=== PATIENT | male | born 1970 | race Two or more races ===

== ENCOUNTER 2023-05-22 19:16 | Inpatient (IN) | payer MEDICAID ==
[~2023-05-22] VITALS: Ht 172.7 cm; Wt 90.7 kg
[2023-05-22] MEDS ORDERED: IV NORMAL SALINE 1000 ML BAG IV ONE (19:30)
[2023-05-22] MEDS ORDERED: HALOPERIDOL LACTATE 5 MG/1 ML VIAL ONE (19:42)
[2023-05-22] MEDS ORDERED: diphenhydrAMINE 50 MG/1 ML VIAL ONE (19:42)
[2023-05-22] MEDS ORDERED: LORAZEPAM 2 MG/1 ML VIAL ONE (19:44)
[2023-05-22] MEDS ORDERED: diphenhydrAMINE 50 MG/1 ML VIAL IM ONE (19:45)
[2023-05-22] MEDS ORDERED: HALOPERIDOL LACTATE 5 MG/1 ML VIAL IM ONE (19:45)
[2023-05-22] MEDS ORDERED: LORAZEPAM 2 MG/1 ML VIAL IM ONE (19:45)
[2023-05-22 20:16] LABS: BASOPHILS % (AUTO) 0.6 % (0.0-2.0); EOSINOPHILS # (AUTO) 0.2 K/uL (0.0-0.7); EOSINOPHILS % (AUTO) 2.2 % (0.0-7.0); HEMATOCRIT 39.7 % (36.7-47.1); LYMPHOCYTES # (AUTO) 1.1 K/uL (0.8-4.8); LYMPHOCYTES % (AUTO) 14.8 % (20.5-51.5); MEAN CORPUSCULAR HGB CONC 35 g/dL (32.5-36.3); MEAN CORPUSCULAR VOLUME 90.9 fL (73.0-96.2); MONOCYTES # (AUTO) 0.5 K/uL (0.1-1.30); MONOCYTES % (AUTO) 7.2 % (0.0-11.0); NEUTROPHILS # (AUTO) 5.5 K/uL (1.8-8.9); NEUTROPHILS % (AUTO) 75.2 % (38.5-71.5); PLATELET COUNT (AUTO) 331 K/uL (152-348); RED BLOOD CELL COUNT(AUTO) 4.37 MIL/uL (4.06-5.63); RED CELL DISTRIBUTION WIDTH 12.9 % (12.1-16.2); WHITE BLOOD COUNT (AUTO) 7.3 K/uL (3.6-10.2)
[2023-05-22 20:18] LABS: DIFFERENTIAL COMMENT 1
[2023-05-22 20:27] LABS: CALCIUM 8.5 mg/dL (8.5-10.1); CARBON DIOXIDE 26 mmol/L (21-32); CHLORIDE 104 mmol/L (98-107); CREATININE 2.3 mg/dL (0.6-1.3); ETHANOL < 3 MG/DL (0-10); GLUCOSE 157 mg/dL (74-106); POTASSIUM 4.2 mmol/L (3.5-5.1); SODIUM SERUM 140 mmol/L (136-145); UREA NITROGEN, BLOOD 24 mg/dL (7-18)
[2023-05-22 20:33] LABS: ALANINE AMINOTRANSFERASE 57 U/L (16-63); ALKALINE PHOSPHATASE 118 U/L (50-136); ASPARTATE AMINOTRANSFERASE 43 U/L (15-37); BILIRUBIN,DIRECT 0.2 mg/dL (0.0-0.2); BILIRUBIN,TOTAL 0.4 mg/dL (0.2-1.0); TOTAL PROTEIN, SERUM 7.5 g/dL (6.4-8.2)
[2023-05-22 20:52] LABS: ACETAMINOPHEN < 10.0 ug/mL (10-30)
[2023-05-22] MEDS ORDERED: LORAZEPAM 2 MG/1 ML VIAL IV PRN (23:15)
[2023-05-22] MEDS ORDERED: IV NORMAL SALINE 500 ML BAG IV ONE (23:15)
[2023-05-22] MEDS ORDERED: ONDANSETRON 4 MG/2 ML VIAL IV PRN (23:15)
[2023-05-23] MEDS: ASPIRIN 81 MG TAB.CHEW PO SCH ×2 (01:51→01:52)
[2023-05-23] MEDS: IV LACTATED RINGERS SOLUTION 1,000 ML IV PRN ×3 (01:53→22:57)
[2023-05-23 05:41] LABS: *BILIRUBIN,URIN NEGATIVE (NEGATIVE); *CLARITY,URINE CLEAR (CLEAR); *COLOR,URINE YELLOW (YELLOW); *KETONES,URINE NEGATIVE (NEGATIVE); *PROTEIN,URINE TRACE (NEGATIVE); *UROBILINOGEN,URINE 0.2 E.U./dl (NORMAL); LEUKOCYTE ESTERASE ,URINE NEGATIVE (NEGATIVE); NITRITE, URINE NEGATIVE (NEGATIVE); UGLUCOSE NEGATIVE (NEGATIVE)
[2023-05-23 05:43] LABS: *BLOOD, URINE NEGATIVE (NEGATIVE)
[2023-05-23 05:59] LABS: *AMPHETAMINE, URINE POSITIVE (NEGATIVE); *BARBITURATE, URINE NEGATIVE (NEGATIVE); *BENZODIAZEPINE, URINE NEGATIVE (NEGATIVE); *CANNABINOID, URINE NEGATIVE (NEGATIVE); *COCCAINE, URINE NEGATIVE (NEGATIVE); *OPIATE, URINE NEGATIVE (NEGATIVE); *PHENCYCLIDINE SCREEN,URINE NEGATIVE (NEGATIVE); FENTANYL, URINE POSITIVE (NEGATIVE)
[2023-05-23 06:16] LABS: BASOPHILS % (AUTO) 0.6 % (0.0-2.0); EOSINOPHILS # (AUTO) 0.2 K/uL (0.0-0.7); HEMATOCRIT 37.3 % (36.7-47.1); HEMOGLOBIN 12.9 g/dL (12.5-16.3); LYMPHOCYTES # (AUTO) 1.5 K/uL (0.8-4.8); LYMPHOCYTES % (AUTO) 18.8 % (20.5-51.5); MEAN CORPUSCULAR HEMOGLOBIN 31.7 uug (23.8-33.4); MEAN CORPUSCULAR HGB CONC 35 g/dL (32.5-36.3); MEAN CORPUSCULAR VOLUME 91.9 fL (73.0-96.2); MONOCYTES # (AUTO) 0.6 K/uL (0.1-1.30); MONOCYTES % (AUTO) 7.9 % (0.0-11.0); NEUTROPHILS # (AUTO) 5.7 K/uL (1.8-8.9); NEUTROPHILS % (AUTO) 69.7 % (38.5-71.5); PLATELET COUNT (AUTO) 338 K/uL (152-348); RED BLOOD CELL COUNT(AUTO) 4.06 MIL/uL (4.06-5.63); RED CELL DISTRIBUTION WIDTH 12.8 % (12.1-16.2); WHITE BLOOD COUNT (AUTO) 8.1 K/uL (3.6-10.2)
[2023-05-23 06:26] LABS: DIFFERENTIAL COMMENT 1
[2023-05-23 06:46] LABS: CALCIUM 8.3 mg/dL (8.5-10.1); CREATININE 1.9 mg/dL (0.6-1.3); PHOSPHOROUS 4.3 mg/dL (2.5-4.9); POTASSIUM 4.2 mmol/L (3.5-5.1)
[2023-05-23] MEDS: PANTOPRAZOLE SODIUM 40 MG TABLET.DR PO SCH (06:54)
[2023-05-23 06:57] LABS: THYROID STIMULATING HORMONE 7.149 mIU/mL (0.358-3.740)
[2023-05-23 07:56] VITALS: BP 151/98; TEMP 97.7; O2SAT 94
[2023-05-23 12:00] VITALS: BP 126/71; TEMP 98.2; O2SAT 95
[2023-05-23 16:00] VITALS: BP 135/93; TEMP 98.5; O2SAT 95
[2023-05-23 20:30] VITALS: BP 130/89; TEMP 98; O2SAT 93
[2023-05-24 00:30] VITALS: BP 141/82; TEMP 100; O2SAT 93
[2023-05-24] MEDS: ACETAMINOPHEN 325 MG TABLET PO PRN ×2 (00:39→19:14)
[2023-05-24 04:27] VITALS: BP 130/85; TEMP 98.9; O2SAT 96
[2023-05-24] MEDS: PANTOPRAZOLE SODIUM 40 MG TABLET.DR PO SCH (06:31)
[2023-05-24] MEDS: ASPIRIN 81 MG TAB.CHEW PO SCH (09:04)
[2023-05-24] MEDS: IV LACTATED RINGERS SOLUTION 1,000 ML IV PRN (10:52)
[2023-05-24 11:15] VITALS: BP 139/92; TEMP 97.4; O2SAT 95
[2023-05-24 15:04] VITALS: BP 144/88; TEMP 97.8; O2SAT 92
[2023-05-24 15:31] LABS: *CREATININE,URINE 28.2 mg/dL (30-125); *URINE TOTAL PROTEIN RANDOM 6.2 mg/dL (<150/24HR)
[2023-05-24 15:33] LABS: *BILIRUBIN,URIN NEGATIVE (NEGATIVE); *BLOOD, URINE 2+ (NEGATIVE); *CLARITY,URINE CLEAR (CLEAR); *COLOR,URINE YELLOW (YELLOW); *KETONES,URINE NEGATIVE (NEGATIVE); *PROTEIN,URINE NEGATIVE (NEGATIVE); *UROBILINOGEN,URINE 0.2 E.U./dl (NORMAL); LEUKOCYTE ESTERASE ,URINE TRACE (NEGATIVE); NITRITE, URINE NEGATIVE (NEGATIVE); PH,URINE 6.5 (5.0-8.0); UGLUCOSE NEGATIVE (NEGATIVE)
[2023-05-24 15:48] LABS: BACTERIA,URINE FEW /HPF (NONE SEEN); SQUAMOUS EPITHELIAL CELL,UR FEW /HPF (NONE SEEN); WBC,URINE 0-3 /HPF (0-3)
[2023-05-24] MEDS: CEFTRIAXONE 1 G in IV DEXTROSE 5% 50 ML IV SCH (18:41)
[2023-05-24] MEDS: IV 1/2NS 1000 ML 1,000 ML IV PRN (18:42)
[2023-05-24 20:20] VITALS: BP 149/104; TEMP 98.7; O2SAT 94
[2023-05-25 04:00] VITALS: BP 157/97; TEMP 98.2; O2SAT 94
[2023-05-25] MEDS: IV 1/2NS 1000 ML 1,000 ML IV PRN (06:13)
[2023-05-25] MEDS: PANTOPRAZOLE SODIUM 40 MG TABLET.DR PO SCH (06:36)
[2023-05-25 07:16] LABS: BASOPHILS # (AUTO) 0.1 K/UL (0.0-0.2); BASOPHILS % (AUTO) 1.4 % (0.0-2.0); EOSINOPHILS # (AUTO) 0.3 K/uL (0.0-0.7); EOSINOPHILS % (AUTO) 4.4 % (0.0-7.0); HEMATOCRIT 39.3 % (36.7-47.1); HEMOGLOBIN 13.5 g/dL (12.5-16.3); LYMPHOCYTES # (AUTO) 1.4 K/uL (0.8-4.8); LYMPHOCYTES % (AUTO) 20.5 % (20.5-51.5); MEAN CORPUSCULAR HEMOGLOBIN 31.1 uug (23.8-33.4); MEAN CORPUSCULAR HGB CONC 34 g/dL (32.5-36.3); MEAN CORPUSCULAR VOLUME 90.7 fL (73.0-96.2); MONOCYTES # (AUTO) 0.6 K/uL (0.1-1.30); MONOCYTES % (AUTO) 8.9 % (0.0-11.0); NEUTROPHILS # (AUTO) 4.4 K/uL (1.8-8.9); NEUTROPHILS % (AUTO) 64.8 % (38.5-71.5); PLATELET COUNT (AUTO) 406 K/uL (152-348); RED BLOOD CELL COUNT(AUTO) 4.33 MIL/uL (4.06-5.63); RED CELL DISTRIBUTION WIDTH 12.3 % (12.1-16.2); WHITE BLOOD COUNT (AUTO) 6.8 K/uL (3.6-10.2)
[2023-05-25 07:34] LABS: DIFFERENTIAL COMMENT 1
[2023-05-25] MEDS: ASPIRIN 81 MG TAB.CHEW PO SCH (08:00)
[2023-05-25 08:12] LABS: ALBUMIN 2.8 g/dL (3.4-5.0); BILIRUBIN,TOTAL 0.4 mg/dL (0.2-1.0); CALCIUM 8.7 mg/dL (8.5-10.1); CREATININE 1.4 mg/dL (0.6-1.3); PHOSPHOROUS 3.5 mg/dL (2.5-4.9); POTASSIUM 4.1 mmol/L (3.5-5.1); TOTAL PROTEIN, SERUM 7.1 g/dL (6.4-8.2)
[2023-05-25 08:22] LABS: CALCIUM 8.9 mg/dL (8.5-10.1); CREATININE 1.4 mg/dL (0.6-1.3); PHOSPHOROUS 3.7 mg/dL (2.5-4.9); POTASSIUM 4.2 mmol/L (3.5-5.1)
[2023-05-25 11:47] VITALS: BP 145/96; TEMP 98; O2SAT 96
[2023-05-25 16:08] VITALS: BP 131/89; TEMP 97.7; O2SAT 97
[2023-05-25] MEDS: CEFTRIAXONE 1 G in IV DEXTROSE 5% 50 ML IV SCH (17:32)
[2023-05-25 19:49] VITALS: BP 166/100; TEMP 97.5; O2SAT 98
[2023-05-25] MEDS ORDERED: HYDROCODONE/APAP 5-325MG TABLET PO PRN (20:15)
[2023-05-25] MEDS ORDERED: TAMSULOSIN HCL 0.4 MG CAP.SR.24H PO SCH (21:00)
[2023-05-25 21:20] VITALS: BP 138/95; TEMP 98; O2SAT 98
[2023-05-26 03:10] LABS: CALCIUM 8.5 mg/dL (8.5-10.1); CREATININE 1.3 mg/dL (0.6-1.3); MAGNESIUM 1.7 mg/dL (1.8-2.4); PHOSPHOROUS 3.6 mg/dL (2.5-4.9)
[2023-05-26 05:02] VITALS: BP 143/92; TEMP 98.2; O2SAT 98
[2023-05-26] MEDS: PANTOPRAZOLE SODIUM 40 MG TABLET.DR PO SCH (06:05)
[2023-05-26 06:35] LABS: BASOPHILS # (AUTO) 0.1 K/UL (0.0-0.2); BASOPHILS % (AUTO) 0.7 % (0.0-2.0); EOSINOPHILS # (AUTO) 0.2 K/uL (0.0-0.7); EOSINOPHILS % (AUTO) 3.1 % (0.0-7.0); HEMOGLOBIN 13.9 g/dL (12.5-16.3); LYMPHOCYTES # (AUTO) 1.6 K/uL (0.8-4.8); LYMPHOCYTES % (AUTO) 21.2 % (20.5-51.5); MEAN CORPUSCULAR HEMOGLOBIN 31.9 uug (23.8-33.4); MEAN CORPUSCULAR HGB CONC 36 g/dL (32.5-36.3); MEAN CORPUSCULAR VOLUME 89.7 fL (73.0-96.2); MONOCYTES # (AUTO) 0.5 K/uL (0.1-1.30); MONOCYTES % (AUTO) 6.5 % (0.0-11.0); NEUTROPHILS # (AUTO) 5.3 K/uL (1.8-8.9); NEUTROPHILS % (AUTO) 68.5 % (38.5-71.5); PLATELET COUNT (AUTO) 424 K/uL (152-348); RED BLOOD CELL COUNT(AUTO) 4.35 MIL/uL (4.06-5.63); RED CELL DISTRIBUTION WIDTH 12.4 % (12.1-16.2); WHITE BLOOD COUNT (AUTO) 7.8 K/uL (3.6-10.2)
[2023-05-26 06:51] LABS: BILIRUBIN,TOTAL 0.4 mg/dL (0.2-1.0); CALCIUM 8.8 mg/dL (8.5-10.1); CREATININE 1.4 mg/dL (0.6-1.3); MAGNESIUM 1.8 mg/dL (1.8-2.4); PHOSPHOROUS 3.5 mg/dL (2.5-4.9); POTASSIUM 3.9 mmol/L (3.5-5.1); TOTAL PROTEIN, SERUM 7.3 g/dL (6.4-8.2)
[2023-05-26 06:55] LABS: DIFFERENTIAL COMMENT 1
[2023-05-26] MEDS: ASPIRIN 81 MG TAB.CHEW PO SCH (09:03)
[2023-05-26] MEDS ORDERED: MAGNESIUM OXIDE 400 MG TABLET PO ONE (09:45)
[2023-05-26] MEDS ORDERED: TAMS-3 PO (10:53)
[2023-05-26 11:30] VITALS: BP_SYST 128; BP_SYST 135; BP_DIAS 85; BP_DIAS 90; TEMP 98.1; O2SAT 96
== END 2023-05-26 14:19 | disposition home or self-care (01) | DRG 812 ==
LOC: ER 19:32 → EDBD 23:20 → TELE3 23:20 → MEDSURG3 05-24 10:13
PROVIDERS: ADMIT Student in an Organized Health Care Education/Training Program; ATTEND Nurse Practitioner Acute Care
DX: T40.411A Poisoning by fentanyl or fentanyl analogs, accidental (unintentional), initial encounter (principal); N17.0 Acute kidney failure with tubular necrosis; I21.A1 Myocardial infarction type 2; G92.8 Other toxic encephalopathy; E44.0 Moderate protein-calorie malnutrition; B35.1 Tinea unguium; B35.3 Tinea pedis; F15.90 Other stimulant use, unspecified, uncomplicated; Y92.89 Other specified places as the place of occurrence of the external cause; E03.8 Other specified hypothyroidism; E86.9 Volume depletion, unspecified; L60.1 Onycholysis; Z59.00 Homelessness unspecified; Z87.891 Personal history of nicotine dependence; F19.10 Other psychoactive substance abuse, uncomplicated; G93.89 Other specified disorders of brain; Z20.822 Contact with and (suspected) exposure to COVID-19; N18.9 Chronic kidney disease, unspecified; N13.2 Hydronephrosis with renal and ureteral calculous obstruction
CPT/HCPCS: 36415; 70450; 71045; 72125; 76770; 83735; 84100; 84300; 84443; 84484; 85025; 93005; 93307; A4663; G0378; G0480; J0696; J1200; J1630; J2060; J7120